=== PATIENT | female | born 1995 ===

== ENCOUNTER 2017-05-31 21:56 | Emergency (ER) | payer MEDICAID ==
--- NOTE | 2017-05-31 23:45 | ER Document Report ---
ED General - General Chief Complaint: Anxiety Stated Complaint: ANXIETY Time Seen by Provider: 05/31/17 23:33 Notes: Patient is a 22-year-old female, at 6 weeks gestation by last menstrual period, that comes emergency department for chief complaint of episodes of anxiety and lightheadedness more than usual. She states she does have a diagnosis of anxiety, panic attacks, and POTS, she states in the mornings she wakes up and she feels lightheaded, this improves during the day but then it returned intermittently. She denies passing out, chest pain, feeling palpitations, shortness of breath, vaginal bleeding, abdominal pain. She states she does have a pain along her sides and thinks she might have a urinary tract infection. She denies nausea or vomiting. She states she was just switched from Paxil back to Zoloft, she also is currently taking midodrine as prescribed for POTS. TRAVEL OUTSIDE OF THE [place] IN LAST 30 DAYS: No Past Medical History - General Information source: Patient - Social History Smoking Status: Never Smoker Frequency of alcohol use: None Drug Abuse: None Lives with: Family Family History: Reviewed & Not Pertinent - Past Medical History Cardiac Medical History: Reports: Other - POTS Psychiatric Medical History: Reports: Hx Anxiety Surgical Hx: Negative - Immunizations Immunizations up to date: Yes Hx Diphtheria, Pertussis, Tetanus Vaccination: Yes Review of Systems - Review of Systems Constitutional: No symptoms reported EENT: No symptoms reported Cardiovascular: See HPI Respiratory: No symptoms reported Gastrointestinal: No symptoms reported Genitourinary: See HPI Female Genitourinary: See HPI Musculoskeletal: No symptoms reported Skin: No symptoms reported Hematologic/Lymphatic: No symptoms reported Neurological/Psychological: See HPI Physical Exam - Vital signs Vitals: Temp Pulse Resp BP Pulse Ox 97.9 F 70 18 119/69 100 05/31/17 22:14 05/31/17 22:14 05/31/17 22:14 05/31/17 22:14 05/31/17 22:14 Interpretation: Normal - General General appearance: Alert, Anxious In distress: None - HEENT Head: Normocephalic, Atraumatic Eyes: Normal Pupils: PERRL - Respiratory Respiratory status: No respiratory distress Chest status: Nontender Breath sounds: Normal Chest palpation: Normal - Cardiovascular Rhythm: Regular Heart sounds: Normal auscultation Murmur: No - Abdominal Inspection: Normal Distension: No distension Bowel sounds: Normal Tenderness: Nontender Organomegaly: No organomegaly - Back Back: Normal, Nontender - Extremities General upper extremity: Normal inspection, Nontender, Normal color, Normal ROM , Normal temperature General lower extremity: Normal inspection, Nontender, Normal color, Normal ROM , Normal temperature, Normal weight bearing. No: Puneet's sign - Neurological Neuro grossly intact: Yes Cognition: Normal Orientation: AAOx4 Walton Coma Scale Eye Opening: Spontaneous Mariya Coma Scale Verbal: Oriented Walton Coma Scale Motor: Obeys Commands Mariya Coma Scale Total: 15 Speech: Normal Motor strength normal: LUE, RUE, LLE, RLE Sensory: Normal - Psychological Associated symptoms: Anxious - Patient slightly jittery, talking rapidly, appears to be nervous, states that she is nervous. However she does respond to questions appropriately, makes good eye contact, she does respond to reassuring tones and calms down. No: Manic, Tearful, Uncooperative - Skin Skin Temperature: Warm Skin Moisture: Dry Skin Color: Normal Course - Re-evaluation Re-evalutation: Patient initially very anxious, talking rapidly, asking questions, appears jittery. I did try to provide reassurance, basic labs will be tested, performed examination on her. Patient denies that she is feeling lightheaded at this time. Vital signs unremarkable. CBC, chemistry unremarkable. Urine is generally unremarkable, does show moderate leukocyte esterase, patient states that with her current symptoms she knows she is getting a UTI, discussed culture versus treatment, patient wants to be treated. Discussed additional evaluation including ultrasound, additional studies, however patient states that she actually feels much better. Discussed that in early hormonal changes can also for additional symptoms, she also will feel different symptoms based on blood flow, discussed position changes, discussed return precautions in detail, patient states she is ready to go home. Patient appears reassured, smiling now. Low suspicion of pulmonary embolism, ACS, sepsis, or other emergent etiology. Patient discharged with return precautions. - Vital Signs Vital signs: Temp Pulse Resp BP Pulse Ox 97.9 F 66 16 111/64 99 05/31/17 22:14 06/01/17 01:28 06/01/17 01:28 06/01/17 01:28 06/01/17 01:28 - Laboratory Result Diagrams: 05/31/17 23:50 05/31/17 23:50 Laboratory results interpreted by me: 05/31/17 23:50 Ur Leukocyte Esterase MODERATE H Discharge - Discharge Clinical Impression: Lightheadedness, Anxiety, Side pain Condition: Stable Disposition: HOME, SELF-CARE Instructions: Anxiety ([facility]) Additional Instructions: We are treating you for a urinary tract infection. Your laboratory values and vital signs are normal. Your symptoms are somewhat nonspecific but no concerning abnormalities are seen at this time. These could be from early , continued to remain hydrated , avoid fast position changes, follow recommendations listed below as well. Follow-up with [facility]. Return for any concerning symptoms. Syncope (fainting or near-fainting) can occur from many different health problems. Or it can be a simple fainting spell requiring no treatment. It is safe for you to go home, but further evaluation will likely be necessary. The warning signs of an impending faint include: dizziness, lightheadedness , nausea, hot flashes, tingling, and weakness. If this happens, lay down and put your feet up, then wait until all of these symptoms have passed before standing up again. If these episodes become recurrent, or if you develop chest pain, heart palpitations, mental confusion, blurred vision, or headache, then you should call the physician, or go to the emergency room. Prescriptions: Cephalexin Monohydrate [Keflex 500 mg Capsule] 500 mg PO BID #10 capsule
[2017-06-01 00:03] LABS: ABSOLUTE BASOPHILS # (AUTO) 0.1 10^3/uL (0.0-0.2); ABSOLUTE EOSINOPHILS # (AUTO) 0.1 10^3/uL (0.0-0.6); ABSOLUTE LYMPHOCYTES (AUTO) 2.8 10^3/uL (0.5-4.7); ABSOLUTE MONOCYTES (AUTO) 0.5 10^3/uL (0.1-1.4); ABSOLUTE NEUT (AUTO) 3.2 10^3/uL (1.7-8.2); BASOPHILS % (AUTO) 0.8 % (0-2); EOSINOPHILS % (AUTO) 0.8 % (0-6); HEMATOCRIT 39.1 % (36.0-47.0); HEMOGLOBIN 13.3 g/dL (12.0-15.5); HGB HCT DIFFERENCE 0.8; MEAN CORPUSCULAR VOLUME 82 fl (80-97); MONOCYTES % (AUTO) 7.8 % (3-13); RED BLOOD COUNT 4.74 10^6/uL (3.72-5.28); RED CELL DISTRIBUTION WIDTH 13.7 % (11.5-14.0); SEGMENTED NEUTROPHILS % (AUTO) 48.6 % (42-78); WHITE BLOOD COUNT 6.6 10^3/uL (4.0-10.5)
[2017-06-01 00:17] LABS: ANION GAP 12 (5-19); BLOOD UREA NITROGEN 11 mg/dL (7-20); CALCIUM 9.5 mg/dL (8.4-10.2); CARBON DIOXIDE 25 mmol/L (22-30); CHLORIDE 102 mmol/L (98-107); CREATININE RESULT 0.58 mg/dL (0.52-1.25); GLUCOSE 92 mg/dL (75-110); POTASSIUM 3.8 mmol/L (3.6-5.0)
[2017-06-01 00:31] LABS: APPEARANCE,URINE SLIGHTLY-CLOUDY; BILIRUBIN,URINE NEGATIVE (NEGATIVE); GLUCOSE, URINE NEGATIVE (NEGATIVE); KETONES,URINE NEGATIVE (NEGATIVE); LEUKOCYTE ESTERASE,URINE MODERATE (NEGATIVE); NITRITE,URINE NEGATIVE (NEGATIVE); PROTEIN,URINE NEGATIVE (NEGATIVE); URINE SPECIFIC GRAVITY 1.018; UROBILINOGEN,URINE NEGATIVE mg/dL (<2.0)
[2017-06-01] MEDS ORDERED: CEPHALEXIN 500 MG CAPSULE PO ONE (01:01)
[2017-06-01 01:30] VITALS: BP 111/64
== END 2017-06-01 01:31 | disposition home or self-care (01) ==
LOC: ER 21:56
DX: O99.341 Other mental disorders complicating pregnancy, first trimester (principal); F41.0 Panic disorder [episodic paroxysmal anxiety]; O99.411 Diseases of the circulatory system complicating pregnancy, first trimester; I49.8 Other specified cardiac arrhythmias; O26.891 Other specified pregnancy related conditions, first trimester; R42 Dizziness and giddiness; R52 Pain, unspecified; Z3A.01 Less than 8 weeks gestation of pregnancy; Z79.899 Other long term (current) drug therapy
CPT/HCPCS: 36415; 80048; 81001; 85025; 99283